=== PATIENT | female | born 1955 | race Caucasian/White ===

== ENCOUNTER → 2016-08-11 | Outpatient (CLI) | payer BC ==
[~2016-08-11] MED LIST: ATOR40TA PO; CALC-755 PO; CALC-803 PO; CETI-176 PO; DCS100C PO; ENAL20TA PO; ESCI5TAB PO; MULT1CAP27 PO; OMEP20CA6 PO; RT-COMBINH INH; SIMV40TA4 PO
--- NOTE | 2016-08-11 15:34 | Diagnostic Imaging Report ---
PROCEDURE: MRI lumbar spine. TECHNIQUE: Multiplanar, multisequence MRI of the lumbar spine was performed without contrast. INDICATION: Low back pain and right leg pain. COMPARISON: 12/02/2007 FINDINGS: There are new postoperative changes of posterior instrumented effusion at L5/S1. There is metallic susceptibility artifact which limits evaluation, however, no focal marrow edema is suspected. There is discogenic endplate marrow change seen at L5/S1. The conus medullaris is at L1 and appears unremarkable. At L5/S1 again there are postoperative changes. There is an interbody spacer device in the intervertebral disc space. There is prominent posterior endplate spurring on the right extending into the right neural foramen resulting in moderate to severe encroachment here. There is some articular facet degenerative change here as well. Findings result in mild right lateral recess and again moderate to severe right foraminal stenosis. There is no significant central narrowing. At L4/L5, there is severe facet arthropathy with minimal grade I degenerative anterior listhesis as well as degenerative disc disease and broad-based posterior disc protrusion resulting in mild central and lateral recess narrowing as well as mild foraminal narrowing bilaterally slightly more prominent on the right. At L3/L4, there is mild degenerative disc disease with annular bulge and mild facet arthropathy resulting in minimal central narrowing and minimal foraminal encroachment on the left. At L2/L3, there is no significant abnormality. The L1/L2 level also appears grossly unremarkable. IMPRESSION: 1. New postoperative changes at L5/S1 as described. There is prominent posterior endplate spurring on the right at this level resulting in moderate to severe right foraminal stenosis and some right lateral recess narrowing as well. Correlate clinically with the right L5 or S1 radiculopathy. 2. Degenerative changes with grade I degenerative anterior listhesis at L4/L5 resulting in mild narrowing of the central canal and mild foraminal narrowing bilaterally. 3. Additional degenerative changes as described above. Dictated by: Dictated on workstation # [id number]
== END ==
LOC: RAD 13:51
PROVIDERS: ATTEND Family Medicine
DX: M48.07 Spinal stenosis, lumbosacral region (principal)
CPT/HCPCS: 72148

== ENCOUNTER → 2018-03-12 | Outpatient (CLI) | payer BC ==
--- NOTE | 2018-03-12 16:22 | Diagnostic Imaging Report ---
INDICATION: Pain in hip and back for several months. TECHNIQUE: AP along with lateral imaging lumbar spine 3:10 PM. CORRELATION STUDY: None. FINDINGS: Postoperative changes at the L5-S1 level with apparent lumbarization of S1. This includes transpedicular screws, interconnecting rods and intervertebral spacer to be present. Alignment appears to be relatively anatomic. Hardware intact. Trace retrolisthesis of L3 on L4, L4 on L5. Alignment otherwise anatomic. Lumbar vertebral body heights maintained. IMPRESSION: Posterior fusion L5-S1 level. Hardware appearing to be intact with alignment anatomic at the fused segments. Dictated by: Dictated on workstation # [id number]
== END ==
LOC: RAD 14:35
PROVIDERS: ATTEND Neurological Surgery
DX: Z48.89 Encounter for other specified surgical aftercare (principal); M54.5 Low back pain; M25.559 Pain in unspecified hip; Z98.1 Arthrodesis status
CPT/HCPCS: 72100

== ENCOUNTER → 2019-03-05 | Outpatient (CLI) | payer BC ==
--- NOTE | 2019-03-05 19:15 | Diagnostic Imaging Report ---
INDICATION: Abnormal mammogram. EXAMINATION: Right breast ultrasound, limited. FINDINGS: The screening mammogram performed on 02/23/2019 noted a small nodular density in the lateral aspect of the right breast. The diagnostic mammogram performed prior to the study suggests that this nodule is most likely a benign process. On this exam, there is a small 0.7 x 0.4 x 0.5 cm hypoechoic lesion with hyperechoic center in this region. This has the appearance of a small benign lymph node and this may well correspond to the density seen on mammogram. There were no other solid or cystic lesions identified. It may prove worthwhile to have a short term (six month) follow-up mammogram and ultrasound exam of the right breast for continued evaluation. IMPRESSION: The nodular density in the far lateral aspect of the right breast, seen on the diagnostic mammogram, may well represent a lymph node. There is no solid mass to suggest malignancy. Recommendations as above. ACR BI-RADS Category 3: Probably benign findings. Result letter will be mailed to the patient. Note: At least 10% of breast cancer is not imaged by mammography. Dictated by: Dictated on workstation # [id number]
--- NOTE | 2019-03-05 19:40 | Diagnostic Imaging Report ---
EXAMINATION: Unilateral diagnostic right mammogram. INDICATION: Abnormal screening mammogram. The current study was also evaluated with a Computer Aided Detection (CAD) system. 3-D tomosynthesis was also performed and reviewed. FINDINGS: The recent screening mammogram performed on 02/20/2019 noted a small nodular density in the lateral aspect of the right breast, approximately 9 cm from the nipple. The compression views of this finding show that this density has a fairly smooth margin. I do suspect that this is a benign process. Even so, ultrasound would be recommended for further evaluation. IMPRESSION: Ultrasound would be recommended for further evaluation of the benign-appearing nodular density in the lateral aspect of the right breast. ACR BI-RADS Category 0: Incomplete. (Needs additional imaging evaluation). Result letter will be mailed to the patient. Note: At least 10% of breast cancer is not imaged by mammography. Dictated by: Dictated on workstation # [id number]
== END ==
LOC: RAD 08:11
PROVIDERS: ATTEND Family Medicine
DX: R92.2 Inconclusive mammogram (principal)

== ENCOUNTER → 2019-08-14 | Outpatient (CLI) | payer BC ==
--- NOTE | 2019-08-14 12:58 | Diagnostic Imaging Report ---
INDICATION: Six-month followup right breast nodule. COMPARISON: 02/20/2019 and 01/27/2018. TECHNIQUE: Unilateral right 2D and 3D diagnostic mammography was performed with CAD. FINDINGS: Scattered fibroglandular densities in the right breast are noted. The small nodular density in the upper outer right breast is stable to perhaps slightly smaller when compared with the prior study. No additional mass is seen. No suspicious calcifications are identified. The right axilla is unremarkable. IMPRESSION: Stable to slightly decreased size of the benign-appearing nodule in the upper outer right breast when compared with the prior exam. Even so, sonographic interrogation of this nodule is recommended and will be performed today. ACR BI-RADS Category 0: Incomplete. (Needs additional imaging evaluation). Result letter will be mailed to the patient. Note: At least 10% of breast cancer is not imaged by mammography. Dictated by: Dictated on workstation # [id number]
--- NOTE | 2019-08-14 13:44 | Diagnostic Imaging Report ---
INDICATION: Six-month followup right breast nodule. COMPARISON: Correlation is made with the diagnostic mammogram from earlier this same day and right breast ultrasound from 03/05/2019. TECHNIQUE: Interrogation of the 9 o'clock location of the right breast 8 cm from the nipple was performed. FINDINGS: The previously noted intra-parenchymal lymph node measures 6 mm x 4 mm x 5 mm, unchanged. No new mass is detected. IMPRESSION: Stable intraparenchymal lymph node at the 9 o'clock location of the right breast. The patient may return to routine annual screening mammography. ACR BI-RADS Category 2: Benign findings. Result letter will be mailed to the patient. Note: At least 10% of breast cancer is not imaged by mammography. Dictated by: Dictated on workstation # [id number]
== END ==
LOC: RAD 12:33
PROVIDERS: ATTEND Internal Medicine
DX: N63.10 Unspecified lump in the right breast, unspecified quadrant (principal); R92.2 Inconclusive mammogram

== ENCOUNTER → 2020-04-07 | Outpatient (CLI) | payer BC ==
--- NOTE | 2020-04-07 15:52 | Diagnostic Imaging Report ---
INDICATION: Routine screening. COMPARISON: 08/14/2019, 02/20/2019, and 01/27/2018. TECHNIQUE: 2D and 3D bilateral screening mammography was performed with CAD. FINDINGS: Scattered fibroglandular densities are identified bilaterally. A small benign nodule in the outer right breast appears stable. No new mass or malignant appearing microcalcifications are identified. The axillae are unremarkable. IMPRESSION: No mammographic features suspicious for malignancy are identified. ACR BI-RADS Category 2: Benign findings. Result letter will be mailed to the patient. Note: At least 10% of breast cancer is not imaged by mammography. Dictated by: Dictated on workstation # [id number]
== END ==
LOC: RAD 10:07
PROVIDERS: ATTEND Internal Medicine
DX: Z12.31 Encounter for screening mammogram for malignant neoplasm of breast (principal)
CPT/HCPCS: 77063; 77067

== ENCOUNTER → 2021-04-13 | Outpatient (CLI) | payer BC ==
--- NOTE | 2021-04-14 09:56 | Diagnostic Imaging Report ---
INDICATION: Routine screening. Comparison is made with prior mammogram from 04/07/2020 and 02/20/2019. 2-D and 3-D bilateral screening mammography was performed with CAD. Both breasts are heterogeneously dense, limiting the sensitivity of mammography. No mass or malignant-appearing microcalcifications are seen. Axillae are unremarkable. IMPRESSION: No mammographic features suspicious for malignancy are identified. BI-RADS Category 1 ACR BI-RADS Category 1: Negative. Result letter will be mailed to the patient. Note: At least 10% of breast cancer is not imaged by mammography. Dictated by: Dictated on workstation # [id number]
== END ==
LOC: RAD 15:00
PROVIDERS: ATTEND Internal Medicine
DX: Z12.31 Encounter for screening mammogram for malignant neoplasm of breast (principal)
CPT/HCPCS: 77063; 77067

== ENCOUNTER → 2021-05-30 | Outpatient (CLI) | payer BC ==
--- NOTE | 2021-05-30 13:45 | Diagnostic Imaging Report ---
Indication: Low back pain and fall 2 weeks ago. TIME OF EXAM: 11:33 AM 3 views lumbar spine were obtained. Curvature alignment is normal. There are postop changes of posterior instrument fusion with vertical stabilization rods and pedicle screws transfixing L4-L5 level. Hardware is intact. Vertebral body heights are maintained. No acute bony abnormality is detected. IMPRESSION: Postoperative changes of posterior instrumented fusion L4-L5. No acute abnormality is detected. Dictated by: Dictated on workstation # [id number]
== END ==
LOC: RAD 10:34
PROVIDERS: ATTEND Internal Medicine
DX: M54.9 Dorsalgia, unspecified (principal); W19.XXXA Unspecified fall, initial encounter; Z98.1 Arthrodesis status
CPT/HCPCS: 72100

== ENCOUNTER → 2021-07-11 | Outpatient (CLI) | payer BC ==
--- NOTE | 2021-07-11 18:09 | Diagnostic Imaging Report ---
PROCEDURE: MRI lumbar spine without contrast. TECHNIQUE: Multiplanar, multisequence MRI of the lumbar spine was performed without contrast. INDICATION: Back pain. History of surgery. COMPARISON: 08/11/2016. FINDINGS: 5 lumbar type vertebral bodies are visualized with the last well-formed disc space designated L5-S1. No acute fracture or dislocation is seen in the lumbar spine. Posterior fusion changes are visualized at the L4-L5 level. Interbody fusion is seen at L4-L5 and L5-S1. Laminectomy has been performed at L4 and L5. The conus terminates at the L1 level. No masses are seen associated with the conus or nerve roots of the cauda equina. No epidural collections are identified. Multilevel degenerative changes are seen in the lumbar spine with disc bulges, facet hypertrophy, and buckling of the ligamentum flavum. T12-L1: No significant spinal canal or foraminal stenosis. L1-L2: No significant spinal canal or foraminal stenosis. L2-L3: No significant spinal canal or foraminal stenosis. L3-L4: Broad-based disc bulge, facet hypertrophy, and buckling of the ligamentum flavum results in severe spinal canal stenosis and moderate to severe bilateral foraminal stenoses. L4-L5: Facet hypertrophy results in no significant spinal canal narrowing and mild to moderate bilateral foraminal narrowing. L5-S1: Marginal osteophytes and facet hypertrophy result in no significant spinal canal narrowing and severe right and moderate left foraminal stenoses. Paravertebral soft tissues are unremarkable. IMPRESSION: 1. No acute fracture or dislocation in the lumbar spine. 2. Multilevel degenerative changes in the lumbar spine, greatest at L3-L4. Bilateral high-grade foraminal stenoses are seen at the L4-L5 and L5-S1 levels. 3. Posterior fusion and laminectomy at L4-L5 with interbody fusion at the L4-L5 and L5-S1 levels. Dictated by: Dictated on workstation # [id number]
== END ==
LOC: RAD 14:45
PROVIDERS: ATTEND Internal Medicine
DX: M47.816 Spondylosis without myelopathy or radiculopathy, lumbar region (principal); M48.061 Spinal stenosis, lumbar region without neurogenic claudication; M48.07 Spinal stenosis, lumbosacral region; Z98.1 Arthrodesis status; Z98.890 Other specified postprocedural states
CPT/HCPCS: 72148

== ENCOUNTER 2021-10-11 16:49 | Observation (INO) | payer MEDICARE, BC ==
[~2021-10-11] VITALS: Ht 165.7 cm; Wt 87.0 kg
[2021-10-11 18:07] VITALS: BP 137/74
[2021-10-11] MEDS ORDERED: diphenhydrAMINE 25 MG TAB (BENADRYL) PO PRN (18:30)
[2021-10-11] MEDS ORDERED: ONDANSETRON 4 MG/2 ML (SDV) Z0FRAN IV PRN (18:30)
[2021-10-11] MEDS ORDERED: ONDANSETRON 4 MG (ZOFRAN) ORAL DISSOLVE TAB PO PRN (18:30)
[2021-10-11] MEDS ORDERED: MELATONIN 3 MG TABLET PO PRN (18:30)
[2021-10-11] MEDS ORDERED: ANTACID SUSP 30 ML UDC (MYLANTA) PO PRN (18:30)
[2021-10-11] MEDS ORDERED: CALCIUM CARBONATE 500 MG (TUMS) TAB.CHEW PO PRN (18:30)
[2021-10-11] MEDS ORDERED: diphenhydrAMINE 50 MG/ML INJ (BENADRYL) IVP PRN (18:30)
[2021-10-11] MEDS ORDERED: MILK OF MAGNESIA 400 MG/5 ML 30 ML UDC PO PRN (18:30)
[2021-10-11] MEDS ORDERED: BISACODYL 10 MG SUPP (DULCOLAX) PR NR (18:45)
[2021-10-11 18:47] LABS: BASOPHILS % (AUTO) 0 % (0-10); EOSINOPHILS # (AUTO) 0.1 10^3/uL (0.0-0.3); EOSINOPHILS % (AUTO) 1 % (0-10); HEMATOCRIT 34 % (35-52); HEMOGLOBIN 10.6 g/dL (11.5-16.0); LYMPHOCYTES # (AUTO) 1.3 10^3/uL (1.0-4.0); LYMPHOCYTES % (AUTO) 19 % (12-44); MEAN CORPUSCULAR HEMOGLOBIN 28 pg (25-34); MEAN CORPUSCULAR HGB CONC 32 g/dL (32-36); MEAN CORPUSCULAR VOLUME 89 fL (80-99); MEAN PLATELET VOLUME 10.6 fL (9.0-12.2); MONOCYTES # (AUTO) 0.9 10^3/uL (0.0-1.0); MONOCYTES % (AUTO) 12 % (0-12); NEUTROPHILS # (AUTO) 4.7 10^3/uL (1.8-7.8); NEUTROPHILS % (AUTO) 67 % (42-75); PLATELET COUNT 233 10^3/uL (130-400)
[2021-10-11 19:05] LABS: ALBUMIN 3.8 GM/DL (3.2-4.5); POTASSIUM 3.6 MMOL/L (3.6-5.0)
[2021-10-11 19:06] LABS: CALCIUM 9.8 MG/DL (8.5-10.1)
--- NOTE | 2021-10-11 19:07 | Diagnostic Imaging Report ---
REASON FOR EXAM: Back surgery 5 days ago. Constipation. Ileus. COMPARISON: None TECHNIQUE: 4 views of the abdomen FINDINGS: The bowel gas pattern is nondistended. No large collection of free intraperitoneal air is seen. A moderate amount of gas and fecal material are present in the colon. No unexpected radiopaque foreign bodies are visualized. Posterior fusion changes are visualized in the lower lumbar spine. Skin tia are seen overlying the right upper quadrant. IMPRESSION: 1. No evidence of bowel obstruction or large collection of free intraperitoneal air. 2. Moderate amount of stool in the colon suggestive of constipation. Dictated by: Dictated on workstation # [id number]
[2021-10-11 19:09] LABS: BILIRUBIN,TOTAL 0.4 MG/DL (0.1-1.0)
[2021-10-11 19:11] LABS: CREATININE SERUM 0.77 MG/DL (0.60-1.30)
[2021-10-11 19:45] VITALS: BP 132/68
[2021-10-11] MEDS: LACTULOSE SYRUP 10GM/15ML (ENULOSE) 30ML UDC PO SCH (20:22)
[2021-10-11] MEDS: polyethylene glycoL POWDER 17 GM (MIRALAX) PACK PO SCH (20:22)
[2021-10-11] MEDS: SENNOSIDES 8.6 MG (SENOKOT) TAB PO SCH (20:22)
[2021-10-11] MEDS: DOCUSATE SODIUM 100 MG (COLACE) CAP PO SCH (20:22)
[2021-10-11] MEDS: NS IV 1000 ML 1,000 ML IV SCH (20:42)
[2021-10-11] MEDS ORDERED: TRAM50TA3 PO (21:06)
[2021-10-11] MEDS ORDERED: TELM40TA6 PO (21:06)
[2021-10-11] MEDS ORDERED: AMLO-250 PO (21:06)
[2021-10-11] MEDS ORDERED: BACL10TA PO (21:06)
[2021-10-11] MEDS ORDERED: ATOR40TA70 PO (21:06)
[2021-10-11] MEDS ORDERED: ESCI-2 PO (21:06)
[2021-10-11] MEDS ORDERED: HYDR2TAB6 PO (21:06)
[2021-10-11] MEDS ORDERED: HYDROmorphone (DILAUDID) 2 MG TAB PO PRN (21:30)
[2021-10-11] MEDS: ACETAMINOPHEN 325 MG TABLET PO PRN (22:19)
[2021-10-12] MEDS: BACLOFEN 10 MG (LIORESAL) TAB PO SCH ×5 (00:34→23:46)
[2021-10-12 00:37] VITALS: BP 133/74
[2021-10-12] MEDS: ACETAMINOPHEN 325 MG TABLET PO PRN ×4 (04:35→23:45)
[2021-10-12 04:59] VITALS: BP 117/72
[2021-10-12 05:47] LABS: BASOPHILS % (AUTO) 0 % (0-10); EOSINOPHILS # (AUTO) 0.2 10^3/uL (0.0-0.3); EOSINOPHILS % (AUTO) 2 % (0-10); HEMATOCRIT 30 % (35-52); HEMOGLOBIN 9.6 g/dL (11.5-16.0); LYMPHOCYTES # (AUTO) 1.5 10^3/uL (1.0-4.0); LYMPHOCYTES % (AUTO) 22 % (12-44); MEAN CORPUSCULAR HEMOGLOBIN 28 pg (25-34); MEAN CORPUSCULAR HGB CONC 32 g/dL (32-36); MEAN CORPUSCULAR VOLUME 88 fL (80-99); MEAN PLATELET VOLUME 10.4 fL (9.0-12.2); MONOCYTES % (AUTO) 15 % (0-12); NEUTROPHILS # (AUTO) 4.1 10^3/uL (1.8-7.8); NEUTROPHILS % (AUTO) 60 % (42-75); PLATELET COUNT 215 10^3/uL (130-400); WHITE BLOOD COUNT 6.7 10^3/uL (4.3-11.0)
[2021-10-12] MEDS: NS IV 1000 ML 1,000 ML IV SCH ×2 (05:59→17:38)
[2021-10-12 06:17] LABS: ALBUMIN 3.3 GM/DL (3.2-4.5); POTASSIUM 3.6 MMOL/L (3.6-5.0)
[2021-10-12 06:18] LABS: CALCIUM 9.1 MG/DL (8.5-10.1)
[2021-10-12 06:20] LABS: TOTAL PROTEIN 5.9 GM/DL (6.4-8.2)
[2021-10-12 06:21] LABS: BILIRUBIN,TOTAL 0.3 MG/DL (0.1-1.0)
[2021-10-12 06:23] LABS: CREATININE SERUM 0.68 MG/DL (0.60-1.30)
--- NOTE | 2021-10-12 06:42 | Short Stay Summary ---
History of Present Illness History of Present Illness Reason for visit/HPI Chief complaint: Abdominal distention with obstipation History of present illness: This is a 66-year-old female clinic patient of mine who is postop lumbar spine surgery by Dr. Valentine on 10/04/2021 who has a past medical history of constipation who presented to my office with abdominal distention with pain and constipation. She had been taking multiple laxatives without resolution so the decision was made to admit for supportive care and evaluate for ileus versus obstruction. KUB from yesterday and today show impr ovement in constipation and stool burden but dilated bowel consistent with ileus. Dr. Newman will be consulted. Fluids continue. Ambulation will be initiated. PT ordered. Date of Admission October 11, 2021 at 17:38 Date of Discharge Time Seen by Provider: 10:00 Attending Physician Mitali Zavala DO Admitting Physician Mitali Zavala DO Consult Allergies and Home Medications Allergies Coded Allergies: codeine (Verified Allergy, Unknown, 04/07/20) enalapril (Verified Allergy, Unknown, 04/07/20) Patient Home Medication List Home Medication List Reviewed: Yes Amlodipine Besylate (Amlodipine Besylate) 5 Mg Tablet, 5 MG PO 1800, (Reported) Entered as Reported by: DEB HOLLIDAY on 10/11/212105 Last Action: Reviewed Atorvastatin Calcium (Atorvastatin Calcium) 40 Mg Tablet, 40 MG PO 1800, (Reported) Entered as Reported by: DEB HOLLIDAY on 10/11/212105 Last Action: Reviewed Baclofen (Baclofen) 10 Mg Tablet, 10 MG PO Q8H PRN for MUSCLE SPASMS, (Reported) Entered as Reported by: DEB HOLLIDAY on 10/11/212105 Last Action: Reviewed Cholecalciferol (Vitamin D3) (Vitamin D3) 125 Mcg (5000 Unit) Tablet, 125 MCG PO SUN, (Reported) Entered as Reported by: JASMIN ADDISON on 10/12/211610 Last Action: Reviewed Docusate Sodium (Stool Softener) 100 Mg Capsule, 100 MG PO BID PRN for CONSTIPATION-1ST LINE, (Reported) Entered as Reported by: JASMIN ADDISON on 10/12/211610 Last Action: Reviewed Escitalopram Oxalate (Escitalopram Oxalate) 10 Mg Tablet, 5 MG PO 1800, (Reported) Entered as Reported by: DEB HOLLIDAY on 10/11/212105 Last Action: Reviewed Ferrous Sulfate (Iron) 325 Mg (65 Mg Iron) Tablet, 325 MG PO 1800, (Reported) Entered as Reported by: JASMIN ADDISON on 10/12/211610 Last Action: Reviewed Glucosamine HCl (Glucosamine HCl) 1,500 Mg Tablet, 4,500 MG PO 1800, (Reported) Entered as Reported by: JASMIN ADDISON on 10/12/211610 Last Action: Reviewed Hydromorphone HCl (Hydromorphone HCl) 2 Mg Tablet, 2 MG PO Q4H PRN for PAIN- SEVERE (8-10), (Reported) Entered as Reported by: DEB HOLLIDAY on 10/11/212105 Last Action: Reviewed Magnesium Oxide (Magnesium) 250 Mg Tablet, 250 MG PO 1800, (Reported) Entered as Reported by: JASMIN ADDISON on 10/12/211610 Last Action: Reviewed Omeprazole Magnesium (Prilosec Otc) 20 Mg Tablet.dr, 20 MG PO DAILY PRN for HEARTBURN, (Reported) Entered as Reported by: JASMIN ADDISON on 10/12/211610 Last Action: Reviewed Telmisartan (Telmisartan) 40 Mg Tablet, 40 MG PO 1800, (Reported) Entered as Reported by: DEB HOLLIDAY on 10/11/212105 Last Action: Reviewed Tramadol HCl (Tramadol HCl) 50 Mg Tablet, 50-100 MG PO Q6H PRN for PAIN-MODERATE (5-7), (Reported) Entered as Reported by: DEB HOLLIDAY on 10/11/212105 Last Action: Reviewed Zolpidem Tartrate (Ambien) 10 Mg Tablet, 5 MG PO HS PRN for SLEEP, (Reported) Entered as Reported by: JASMIN ADDISON on 10/12/211610 Last Action: Reviewed Discontinued Medications Albuterol/Ipratropium (Combivent Common Canister) 1 Puff Puff, 2 PUFF INH PRN, (Reported) Discontinued Reason: No Longer Taking Entered as Reported by: EDNA RAMOS on 03/10/13 0955 Last Action: Discontinued Calcium Carb &Cit/Magnesium Ox (Calmag Thins Tablet) 1 Each Tablet, 1 EACH PO DAILY, (Reported) Discontinued Reason: No Longer Taking Entered as Reported by: MISHA ORTIZ on 03/09/13215 Last Action: Discontinued Docusate Sodium (Colace Capsule) 100 Mg Cap, 100 MG PO DAILY, (Reported) Discontinued Reason: Duplicate Order Entered as Reported by: MISHA WESTONTERI on 03/09/13215 Last Action: Discontinued Escitalopram Oxalate (Lexapro) 5 Mg Tablet, 1 EACH PO DAILY, (Reported) Discontinued Reason: No Longer Taking Entered as Reported by: ALYSSA GUILLAUME on 02/05/12 104 Last Action: Discontinued Multivitamins (Multivitamins) 1 Each Capsule, 1 EACH PO DAILY, (Reported) Discontinued Reason: No Longer Taking Entered as Reported by: ALYSSA GUILLAUME on 02/06/12 0800 Last Action: Discontinued Omeprazole (Prilosec) 20 Mg Capsule.dr, 20 MG PO PRN, (Reported) Discontinued Reason: No Longer Taking Entered as Reported by: ALYSSA GUILLAUME on 02/05/121043 Last Action: Discontinued Simvastatin (Simvastatin) 40 Mg Tablet, 40 MG PO DAILY, (Reported) Discontinued Reason: No Longer Taking Entered as Reported by: CRISS AYALA on 12/23/12 1252 Last Action: Discontinued Past Ckvzpnk-Auvnhd-Cfbbjo Hx Patient Social History Marrital Status: Employed/Student: retired Smoking Status: Never a Smoker Have you traveled recently?: No Alcohol Use?: No Pt feels they are or have been: No Immunizations Up To Date Tetanus Booster (TDap): More than 5yrs Date of Pneumonia Vaccine: Mar 05, 2011 Date of Influenza Vaccine: Feb 26, 2013 Seasonal Allergies Seasonal Allergies: Yes Surgeries Orthopedic Cardiovascular High Cholesterol, Hypertension Reproductive System Hx Reproductive Disorders: No Sexually Transmitted Disease: No HIV/AIDS: No Female Reproductive Disorders: Denies 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: 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 Gastrointestinal Gastroesophageal Reflux, Diverticulosis, Irritable Bowel Musculoskeletal Arthritis HEENT Loss of Vision: Denies Blood Transfusions Adverse Reaction to a Blood Tr: No Family Medical History Significant Family History: No Pertinent Family Hx Review of Systems Constitutional: see HPI, malaise, weakness EENTM: no symptoms reported Respiratory: no symptoms reported Cardiovascular: no symptoms reported Gastrointestinal: abdominal pain, constipation, loss of appetite, nausea Genitourinary: no symptoms reported Musculoskeletal: no symptoms reported Skin: no symptoms reported Psychiatric/Neurological: No Symptoms Reported All Other Systems Reviewed Negative Unless Noted: Yes Physical Exam Vital Signs Vital Signs - First Documented 5/11/22 18:07 Temp 35.8 Pulse 93 Resp 20 B/P (MAP) 137/74 (95) Pulse Ox 97 O2 Delivery Room Air Capillary Refill : Height, Weight, BMI Height: '" Weight: 183lbs. 4.0oz. 83.318517gq; 31.68 BMI Method: General Appearance: No Apparent Distress, WD/WN Eyes: Bilateral Eye Normal Inspection, Bilateral Eye PERRL, Bilateral Eye EOMI HEENT: PERRL/EOMI, Normal ENT Inspection, Pharynx Normal Neck: Full Range of Motion, Normal Inspection, Non Tender, Supple, Carotid Bruit Respiratory: Chest Non Tender, Lungs Clear, Normal Breath Sounds, No Accessory Muscle Use, No Respiratory Distress Cardiovascular: Regular Rate, Rhythm, No Edema, No Gallop, No JVD, No Murmur, Normal Peripheral Pulses Gastrointestinal: No Organomegaly, No Pulsatile Mass, Abnormal Bowel Sounds, Distended, Tenderness Back: Normal Inspection, No CVA Tenderness, No Vertebral Tenderness Extremity: Normal Capillary Refill, Normal Inspection, Normal Range of Motion, Non Tender, No Calf Tenderness, No Pedal Edema Neurologic/Psychiatric: Alert, Oriented x3, No Motor/Sensory Deficits, Normal Mood/Affect Skin: Normal Color, Warm/Dry Lymphatic: No Adenopathy Clinical Quality Measures DVT/VTE Risk/Contraindication: Contraindications-Pharm: Other *list below* Other: spine surgery Short Stay Diagnosis Discharge Diagnosis-Short Stay Admission Diagnosis: Postoperative lumbar spine surgery now with abdominal pain with distention and constipation Final Discharge Diagnosis: Postop ileus Conclusion Labs Laboratory Tests 10/11/21 18:40: White Blood Count 7.0, Red Blood Count 3.78L, Hemoglobin 10.6L, Hematocrit 34L, Mean Corpuscular Volume 89, Mean Corpuscular Hemoglobin 28, Mean Corpuscular Hemoglobin Concent 32, Red Cell Distribution Width 13.1, Platelet Count 233, Mean Platelet Volume 10.6, Immature Granulocyte % (Auto) 0, Neutrophils (%) (Auto) 67, Lymphocytes (%) (Auto) 19, Monocytes (%) (Auto) 12, Eosinophils (%) (Auto) 1, Basophils (%) (Auto) 0, Neutrophils # (Auto) 4.7, Lymphocytes # (Auto) 1.3, Monocytes # (Auto) 0.9, Eosinophils # (Auto) 0.1, Basophils # (Auto) 0.0, Immature Granulocyte # (Auto) 0.0, Sodium Level 142, Potassium Level 3.6, Chloride Level 100, Carbon Dioxide Level 31, Anion Gap 11, Blood Urea Nitrogen 8, Creatinine 0.77, Estimat Glomerular Filtration Rate 86, BUN/Creatinine Ratio 10, Glucose Level 150H, Calcium Level 9.8, Corrected Calcium 10.0, Total Bilirubin 0.4, Aspartate Amino Transf (AST/SGOT) 14, Alanine Aminotransferase (ALT/SGPT) 12, Alkaline Phosphatase 67, Total Protein 7.0, Albumin 3.8 10/12/21 05:35: White Blood Count 6.7, Red Blood Count 3.44L, Hemoglobin 9.6L, Hematocrit 30L, Mean Corpuscular Volume 88, Mean Corpuscular Hemoglobin 28, Mean Corpuscular Hemoglobin Concent 32, Red Cell Distribution Width 13.2, Platelet Count 215, Mean Platelet Volume 10.4, Immature Granulocyte % (Auto) 0, Neutrophils (%) (Auto) 60, Lymphocytes (%) (Auto) 22, Monocytes (%) (Auto) 15H, Eosinophils (%) (Auto) 2, Basophils (%) (Auto) 0, Neutrophils # (Auto) 4.1, Lymphocytes # (Auto) 1.5, Monocytes # (Auto) 1.0, Eosinophils # (Auto) 0.2, Basophils # (Auto) 0.0, Immature Granulocyte # (Auto) 0.0, Sodium Level 140, Potassium Level 3.6, Chloride Level 101, Carbon Dioxide Level 28, Anion Gap 11, Blood Urea Nitrogen 6L, Creatinine 0.68, Estimat Glomerular Filtration Rate 97, BUN/Creatinine Ratio 9, Glucose Level 104, Calcium Level 9.1, Corrected Calcium 9.7, Total Bilirubin 0.3, Aspartate Amino Transf (AST/SGOT) 12, Alanine Aminotransferase (ALT/SGPT) 9, Alkaline Phosphatase 61, Total Protein 5.9L, Albumin 3.3 Conclusion/Plan Consult Dr. Newman SCDs IV fluid Supportive care MITALI ZAVALA DO October 12, 2021 06:42
[2021-10-12] MEDS ORDERED: PATIENT MAY USE OWN MEDS, ALL MC SCH (07:45)
[2021-10-12 07:57] VITALS: BP 112/69
[2021-10-12] MEDS: DOCUSATE SODIUM 100 MG (COLACE) CAP PO SCH ×2 (08:40→21:34)
[2021-10-12] MEDS: LACTULOSE SYRUP 10GM/15ML (ENULOSE) 30ML UDC PO SCH ×3 (08:40→21:34)
[2021-10-12] MEDS: polyethylene glycoL POWDER 17 GM (MIRALAX) PACK PO SCH ×3 (08:40→21:34)
[2021-10-12] MEDS: SENNOSIDES 8.6 MG (SENOKOT) TAB PO SCH ×2 (08:40→21:34)
--- NOTE | 2021-10-12 09:54 | Physical Therapy Progress Note ---
Therapy Progress Note Patient declined PT stating she is independent with all mobility and does not require skilled PT. Patient did demonstrate ambulating in room independently. No skilled PT indicated and patient refusal. 1 visit TEOFILO ENCINAS PT October 12, 2021 09:54
[2021-10-12] MEDS ORDERED: HYDROmorphone (DILAUDID) 2 MG TAB PO PRN (10:00)
[2021-10-12] MEDS ORDERED: MAGNESIUM CITRATE 300 ML BTL PO NR (10:45)
--- NOTE | 2021-10-12 10:50 | Diagnostic Imaging Report ---
INDICATION: Recent back surgery. Ileus. COMPARISON: 10/11/2021 EXAM: Multiple frontal radiographic views of the abdomen were obtained. FINDINGS: There is a mild amount of gas scattered throughout the colon. Small bowel loops are nondistended. There is no large collection of free intraperitoneal air. Postsurgical changes of the lumbar spine are again noted. No unexpected radiopaque foreign bodies are seen. IMPRESSION: 1. Mild air scattered throughout the colon. Otherwise, no evidence of obstruction. Dictated by: Dictated on workstation # [id number]
[2021-10-12 11:51] VITALS: BP 133/73
--- NOTE | 2021-10-12 14:59 | Consultation - Surgery ---
History of Present Illness History of Present Illness Patient Consulted On(anjali/time) 10/12/21 14:54 Date Seen by Provider: October 12, 2021 Time Seen by Provider: 14:54 History of Present Illness Consult requested by Dr. Colmenares for ileus. Patient is 66-year-old female who just underwent lumbar spine surgery. Patient states that she had a little bit of difficulty with her bowels so she stayed an extra day in the hospital. She did not began having flatus. She is tolerating diet. She had an enema which then was productive of a little bit of stool as well. So she was discharged home. Patient reports having last couple days a little more abdominal pain and feels like it is diffuse all over. Definitely seems to make it better or worse. She is passing a little bit of flatus. Had a very small bowel movement with enema. May be slightly better today. She has been taking a bowel regimen she states which seems to maybe be helping. Patient has had been active but not very much and feels like she needs to be more active. She reports having slight nausea. Her pain is controlled with tramadol and Tylenol. Patient had abdominal x-rays which demonstrated signs of constipation. She currently denies any vomiting fever sweats chills shortness of breath or chest pain. Allergies and Home Medications Allergies Coded Allergies: codeine (Verified Allergy, Unknown, 04/07/20) enalapril (Verified Allergy, Unknown, 04/07/20) Patient Home Medication List Home Medication List Reviewed: Yes Amlodipine Besylate (Amlodipine Besylate) 5 Mg Tablet, (Reported) Entered as Reported by: DEB HOLLIDAY on 10/11/212105 Last Action: Held Atorvastatin Calcium (Atorvastatin Calcium) 40 Mg Tablet, (Reported) Entered as Reported by: DEB HOLLIDAY on 10/11/212105 Last Action: Held Baclofen (Baclofen) 10 Mg Tablet, (Reported) Entered as Reported by: DEB HOLLIDAY on 10/11/212105 Last Action: Continued Calcium Carb &Cit/Magnesium Ox (Calmag Thins Tablet) 1 Each Tablet, 1 EACH PO DAILY, (Reported) Entered as Reported by: MISHA ORTIZ on 03/09/136 Last Action: Held Docusate Sodium (Colace Capsule) 100 Mg Cap, 100 MG PO DAILY, (Reported) Entered as Reported by: MISHA ORTIZ on 03/09/13 0216 Last Action: Held Escitalopram Oxalate (Lexapro) 5 Mg Tablet, 1 EACH PO DAILY, (Reported) Entered as Reported by: ALYSSA GUILLAUME on 02/05/121043 Last Action: Held Escitalopram Oxalate (Escitalopram Oxalate) 10 Mg Tablet, (Reported) Entered as Reported by: DEB HOLLIDAY on 10/11/212105 Last Action: Held Hydromorphone HCl (Hydromorphone HCl) 2 Mg Tablet, (Reported) Entered as Reported by: DEB HOLLIDAY on 10/11/212105 Last Action: Continued Multivitamins (Multivitamins) 1 Each Capsule, 1 EACH PO DAILY, (Reported) Entered as Reported by: ALYSSA GUILLAUME on 02/06/12 0800 Last Action: Held Telmisartan (Telmisartan) 40 Mg Tablet, (Reported) Entered as Reported by: DEB HOLLIDAY on 10/11/212105 Last Action: Held Tramadol HCl (Tramadol HCl) 50 Mg Tablet, (Reported) Entered as Reported by: DEB HOLLIDAY on 10/11/212105 Last Action: Continued Discontinued Medications Albuterol/Ipratropium (Combivent Common Canister) 1 Puff Puff, 2 PUFF INH PRN, (Reported) Discontinued Reason: No Longer Taking Entered as Reported by: EDNA RAMOS on 03/10/13 0955 Last Action: Discontinued Omeprazole (Prilosec) 20 Mg Capsule.dr, 20 MG PO PRN, (Reported) Discontinued Reason: No Longer Taking Entered as Reported by: ALYSSA GUILLAUME on 02/05/12 104 Last Action: Discontinued Simvastatin (Simvastatin) 40 Mg Tablet, 40 MG PO DAILY, (Reported) Discontinued Reason: No Longer Taking Entered as Reported by: CRISS AYALA on 12/23/12 1252 Last Action: Discontinued Past Mobruko-Ykljbr-Vngquh Hx Patient Social History Smoking Status: Never a Smoker Alcohol Use?: No Have you traveled recently?: No Immunizations Up To Date Tetanus Booster (TDap): More than 5yrs Date of Pneumonia Vaccine: Mar 05, 2011 Date of Influenza Vaccine: Feb 26, 2013 Seasonal Allergies Seasonal Allergies: Yes Surgeries History of Surgeries: Yes (Recent back surgery) Reproductive System Hx Reproductive Disorders: No Sexually Transmitted Disease: No HIV/AIDS: No Female Reproductive Disorders: Denies 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 Gastrointestinal Gastrointestinal Disorders: Gastroesophageal Reflux, Diverticulosis, Irritable Bowel Musculoskeletal Musculoskeletal Disorders: Arthritis HEENT Loss of Vision: Denies Blood Transfusions Adverse Reaction to a Blood Tr: No Family Medical History Significant Family History: No Pertinent Family Hx Review of Systems-General Constitutional: No chills, No diaphoresis EENTM: No blurred vision, No double vision Respiratory: No cough, No dyspnea on exertion Cardiovascular: No chest pain, No palpitations Gastrointestinal: nausea; No vomiting Genitourinary: No decreased output, No discharge Musculoskeletal: back pain; No joint pain Skin: No change in color, No change in hair/nails Psychiatric/Neurological: Denies Anxiety, Denies Depressed, Denies Emotional Problems All Other Systems Reviewed Negative Unless Noted: Yes (Negative excepted noted.) Physical Exam-General Problems Physical Exam Vital Signs Vital Signs - First Documented 10/11/21 18:07 Temp 35.8 Pulse 93 Resp 20 B/P (MAP) 137/74 (95) Pulse Ox 97 O2 Delivery Room Air Capillary Refill : General Appearance: WD/WN, no apparent distress HEENT: PERRL/EOMI, normal ENT inspection Neck: non-tender, supple, normal inspection Respiratory: chest non-tender, no respiratory distress, no accessory muscle use Gastrointestinal: soft, tenderness (Minimal diffuse) Rectal: deferred Back: normal inspection (Except for midline incision lumbar region no signs of infection) Extremities: non-tender, normal inspection Neurologic/Psychiatric: alert, normal mood/affect, oriented x 3 Skin: normal color, warm/dry Lymphatic: no adenopathy Data Review Labs Laboratory Tests 10/11/21 18:40: White Blood Count 7.0, Red Blood Count 3.78L, Hemoglobin 10.6L, Hematocrit 34L, Mean Corpuscular Volume 89, Mean Corpuscular Hemoglobin 28, Mean Corpuscular Hemoglobin Concent 32, Red Cell Distribution Width 13.1, Platelet Count 233, Mean Platelet Volume 10.6, Immature Granulocyte % (Auto) 0, Neutrophils (%) (Auto) 67, Lymphocytes (%) (Auto) 19, Monocytes (%) (Auto) 12, Eosinophils (%) (Auto) 1, Basophils (%) (Auto) 0, Neutrophils # (Auto) 4.7, Lymphocytes # (Auto) 1.3, Monocytes # (Auto) 0.9, Eosinophils # (Auto) 0.1, Basophils # (Auto) 0.0, I mmature Granulocyte # (Auto) 0.0, Sodium Level 142, Potassium Level 3.6, Chloride Level 100, Carbon Dioxide Level 31, Anion Gap 11, Blood Urea Nitrogen 8, Creatinine 0.77, Estimat Glomerular Filtration Rate 86, BUN/Creatinine Ratio 10, Glucose Level 150H, Calcium Level 9.8, Corrected Calcium 10.0, Total Bilirubin 0.4, Aspartate Amino Transf (AST/SGOT) 14, Alanine Aminotransferase (ALT/SGPT) 12, Alkaline Phosphatase 67, Total Protein 7.0, Albumin 3.8 10/12/21 05:35: White Blood Count 6.7, Red Blood Count 3.44L, Hemoglobin 9.6L, Hematocrit 30L, Mean Corpuscular Volume 88, Mean Corpuscular Hemoglobin 28, Mean Corpuscular Hemoglobin Concent 32, Red Cell Distribution Width 13.2, Platelet Count 215, Mean Platelet Volume 10.4, Immature Granulocyte % (Auto) 0, Neutrophils (%) (Auto) 60, Lymphocytes (%) (Auto) 22, Monocytes (%) (Auto) 15H, Eosinophils (%) (Auto) 2, Basophils (%) (Auto) 0, Neutrophils # (Auto) 4.1, Lymphocytes # (Auto) 1.5, Monocytes # (Auto) 1.0, Eosinophils # (Auto) 0.2, Basophils # (Auto) 0.0, Immature Granulocyte # (Auto) 0.0, Sodium Level 140, Potassium Level 3.6, Chloride Level 101, Carbon Dioxide Level 28, Anion Gap 11, Blood Urea Nitrogen 6L, Creatinine 0.68, Estimat Glomerular Filtration Rate 97, BUN/Creatinine Ratio 9, Glucose Level 104, Calcium Level 9.1, Corrected Calcium 9.7, Total Bilirubin 0.3, Aspartate Amino Transf (AST/SGOT) 12, Alanine Aminotransferase (ALT/SGPT) 9, Alkaline Phosphatase 61, Total Protein 5.9L, Albumin 3.3 Assessment/Plan Assessment/Plan Assessment/Plan Status post lumbar surgery Minimal generalized abdominal pain Constipation/ileus Patient encouraged to increase activity as she tolerates. She can continue with current bowel regimen which I think will be beneficial. She is passing flatus so I feel that this will continue to improve. We will continue to follow this patient is in the hospital. Clinical Quality Measures DVT/VTE Risk/Contraindication: Contraindications-Pharm: Other *list below* Other: spine surgery ROCIO TURNER DO October 12, 2021 14:59
[2021-10-12 15:42] VITALS: BP 120/56
[2021-10-12] MEDS ORDERED: CALC-250 PO (16:11)
[2021-10-12] MEDS ORDERED: GLUC15006 PO (16:11)
[2021-10-12] MEDS ORDERED: OMEP20TA33 PO (16:11)
[2021-10-12] MEDS ORDERED: FERR-84 PO (16:11)
[2021-10-12] MEDS ORDERED: MAGN250T13 PO (16:11)
[2021-10-12] MEDS ORDERED: ZOLP10TA PO (16:11)
[2021-10-12] MEDS ORDERED: DOCU-26 PO (16:11)
[2021-10-12 20:00] VITALS: BP 137/73
[2021-10-13 00:25] VITALS: BP 135/61
[2021-10-13 05:26] LABS: BASOPHILS # (AUTO) 0.1 10^3/uL (0.0-0.1); BASOPHILS % (AUTO) 1 % (0-10); EOSINOPHILS # (AUTO) 0.1 10^3/uL (0.0-0.3); EOSINOPHILS % (AUTO) 2 % (0-10); HEMATOCRIT 32 % (35-52); HEMOGLOBIN 10.1 g/dL (11.5-16.0); LYMPHOCYTES # (AUTO) 1.5 10^3/uL (1.0-4.0); LYMPHOCYTES % (AUTO) 23 % (12-44); MEAN CORPUSCULAR HEMOGLOBIN 28 pg (25-34); MEAN CORPUSCULAR HGB CONC 32 g/dL (32-36); MEAN CORPUSCULAR VOLUME 89 fL (80-99); MEAN PLATELET VOLUME 10.3 fL (9.0-12.2); MONOCYTES # (AUTO) 0.9 10^3/uL (0.0-1.0); MONOCYTES % (AUTO) 14 % (0-12); NEUTROPHILS # (AUTO) 3.9 10^3/uL (1.8-7.8); NEUTROPHILS % (AUTO) 60 % (42-75); PLATELET COUNT 253 10^3/uL (130-400); WHITE BLOOD COUNT 6.5 10^3/uL (4.3-11.0)
[2021-10-13] MEDS: BACLOFEN 10 MG (LIORESAL) TAB PO SCH (05:33)
[2021-10-13] MEDS: NS IV 1000 ML 1,000 ML IV SCH (05:35)
[2021-10-13 05:52] LABS: ALBUMIN 3.5 GM/DL (3.2-4.5); POTASSIUM 3.6 MMOL/L (3.6-5.0)
[2021-10-13 05:53] LABS: CALCIUM 9.5 MG/DL (8.5-10.1)
[2021-10-13 05:55] LABS: TOTAL PROTEIN 6.3 GM/DL (6.4-8.2)
[2021-10-13 05:56] LABS: BILIRUBIN,TOTAL 0.4 MG/DL (0.1-1.0)
[2021-10-13 05:58] LABS: CREATININE SERUM 0.7 MG/DL (0.60-1.30)
[2021-10-13 08:00] VITALS: BP 131/73
[2021-10-13] MEDS: LACTULOSE SYRUP 10GM/15ML (ENULOSE) 30ML UDC PO SCH (08:23)
[2021-10-13] MEDS: DOCUSATE SODIUM 100 MG (COLACE) CAP PO SCH (08:23)
[2021-10-13] MEDS: polyethylene glycoL POWDER 17 GM (MIRALAX) PACK PO SCH (08:23)
[2021-10-13] MEDS: SENNOSIDES 8.6 MG (SENOKOT) TAB PO SCH (08:23)
[2021-10-13] MEDS: ACETAMINOPHEN 325 MG TABLET PO PRN (08:40)
--- NOTE | 2021-10-13 09:04 | Discharge Summary ---
Diagnosis/Chief Complaint Date of Admission October 11, 2021 at 17:38 Date of Discharge Discharge Date: October 13, 2021 Discharge Diagnosis Postop ileus Constipation Dehydration Abdominal pain Status post lumbar spine surgery on 10/04/2021 Reason Hospital Visit Chief complaint: Abdominal distention with obstipation History of present illness: This is a 66-year-old female clinic patient of mine who is postop lumbar spine surgery by Dr. Valentine on 10/04/2021 who has a past medical history of constipation who presented to my office with abdominal distention with pain and constipation. She had been taking multiple laxatives without resolution so the decision was made to admit for supportive care and evaluate for ileus versus obstruction. KUB from yesterday and today show improv ement in constipation and stool burden but dilated bowel consistent with ileus. Dr. Newman will be consulted. Fluids continue. Ambulation will be initiated. PT ordered. Discharge Summary Discharge Physical Examination Allergies: Coded Allergies: codeine (Verified Allergy, Unknown, 04/07/20) enalapril (Verified Allergy, Unknown, 04/07/20) Vitals & I&Os Vital Signs Date Time Temp Pulse Resp B/P (MAP) Pulse Ox O2 Delivery O2 Flow Rate FiO2 10/13/21 11:24 36.4 80 18 131/73 93 Room Air General Appearance: Alert, Oriented X3, Cooperative Abdominal: Normal Bowel Sounds, Soft, No Tenderness Hospital Course Was the Problem List Reviewed?: Yes Pt had an uneventful hospital course after she was admitted from post-op ileus and constipation. Dr. Newman was consulted. She was given laxatives, IV fluids, clear liquid diet, and pt was evacuated of bowel contents. Pt was doing very well and felt like she was on the road to recovery. She will see me next week. Labs (last 24 hrs) Laboratory Tests 10/11/21 18:40: White Blood Count 7.0, Red Blood Count 3.78L, Hemoglobin 10.6L, Hematocrit 34L, Mean Corpuscular Volume 89, Mean Corpuscular Hemoglobin 28, Mean Corpuscular Hemoglobin Concent 32, Red Cell Distribution Width 13.1, Platelet Count 233, Mean Platelet Volume 10.6, Immature Granulocyte % (Auto) 0, Neutrophils (%) (Auto) 67, Lymphocytes (%) (Auto) 19, Monocytes (%) (Auto) 12, Eosinophils (%) (Auto) 1, Basophils (%) (Auto) 0, Neutrophils # (Auto) 4.7, Lymphocytes # (Auto) 1.3, Monocytes # (Auto) 0.9, Eosinophils # (Auto) 0.1, Basophils # (Auto) 0.0, Immature Granulocyte # (Auto) 0.0, Sodium Level 142, Potassium Level 3.6, Chloride Level 100, Carbon Dioxide Level 31, Anion Gap 11, Blood Urea Nitrogen 8, Creatinine 0.77, Estimat Glomerular Filtration Rate 86, BUN/Creatinine Ratio 10, Glucose Level 150H, Calcium Level 9.8, Corrected Calcium 10.0, Total Bilirubin 0.4, Aspartate Amino Transf (AST/SGOT) 14, Alanine Aminotransferase (ALT/SGPT) 12, Alkaline Phosphatase 67, Total Protein 7.0, Albumin 3.8 10/12/21 05:35: White Blood Count 6.7, Red Blood Count 3.44L, Hemoglobin 9.6L, Hematocrit 30L, Mean Corpuscular Volume 88, Mean Corpuscular Hemoglobin 28, Mean Corpuscular Hem oglobin Concent 32, Red Cell Distribution Width 13.2, Platelet Count 215, Mean Platelet Volume 10.4, Immature Granulocyte % (Auto) 0, Neutrophils (%) (Auto) 60, Lymphocytes (%) (Auto) 22, Monocytes (%) (Auto) 15H, Eosinophils (%) (Auto) 2, Basophils (%) (Auto) 0, Neutrophils # (Auto) 4.1, Lymphocytes # (Auto) 1.5, Monocytes # (Auto) 1.0, Eosinophils # (Auto) 0.2, Basophils # (Auto) 0.0, Immature Granulocyte # (Auto) 0.0, Sodium Level 140, Potassium Level 3.6, Chloride Level 101, Carbon Dioxide Level 28, Anion Gap 11, Blood Urea Nitrogen 6L, Creatinine 0.68, Estimat Glomerular Filtration Rate 97, BUN/Creatinine Ratio 9, Glucose Level 104, Calcium Level 9.1, Corrected Calcium 9.7, Total Bilirubin 0.3, Aspartate Amino Transf (AST/SGOT) 12, Alanine Aminotransferase (ALT/SGPT) 9, Alkaline Phosphatase 61, Total Protein 5.9L, Albumin 3.3 10/13/21 05:00: White Blood Count 6.5, Red Blood Count 3.59L, Hemoglobin 10.1L, Hematocrit 32L, Mean Corpuscular Volume 89, Mean Corpuscular Hemoglobin 28, Mean Corpuscular Hemoglobin Concent 32, Red Cell Distribution Width 13.2, Platelet Count 253, Mean Platelet Volume 10.3, Immature Granulocyte % (Auto) 0, Neutrophils (%) (Auto) 60, Lymphocytes (%) (Auto) 23, Monocytes (%) (Auto) 14H, Eosinophils (%) (Auto) 2, Basophils (%) (Auto) 1, Neutrophils # (Auto) 3.9, Lymphocytes # (Auto) 1.5, Monocytes # (Auto) 0.9, Eosinophils # (Auto) 0.1, Basophils # (Auto) 0.1, Immature Granulocyte # (Auto) 0.0, Sodium Level 142, Potassium Level 3.6, Chloride Level 104, Carbon Dioxide Level 28, Anion Gap 10, Blood Urea Nitrogen 4L, Creatinine 0.70, Estimat Glomerular Filtration Rate 96, BUN/Creatinine Ratio 6, Glucose Level 96, Calcium Level 9.5, Corrected Calcium 9.9, Total Bilirubin 0.4, Aspartate Amino Transf (AST/SGOT) 18, Alanine Aminotransferase (ALT/SGPT) 13, Alkaline Phosphatase 76, Total Protein 6.3L, Albumin 3.5 Pending Labs Laboratory Tests 10/11/21 18:40: White Blood Count 7.0, Red Blood Count 3.78, Hemoglobin 10.6, Hematocrit 34, Mean Corpuscular Volume 89, Mean Corpuscular Hemoglobin 28, Mean Corpuscular Hemoglobin Concent 32, Red Cell Distribution Width 13.1, Platelet Count 233, Mean Platelet Volume 10.6, Immature Granulocyte % (Auto) 0, Neutrophils (%) (Auto) 67, Lymphocytes (%) (Auto) 19, Monocytes (%) (Auto) 12, Eosinophils (%) (Auto) 1, Basophils (%) (Auto) 0, Neutrophils # (Auto) 4.7, Lymphocytes # (Auto) 1.3, Monocytes # (Auto) 0.9, Eosinophils # (Auto) 0.1, Basophils # (Auto) 0.0, Immature Granulocyte # (Auto) 0.0, Sodium Level 142, Potassium Level 3.6, Chloride Level 100, Carbon Dioxide Level 31, Anion Gap 11, Blood Urea Nitrogen 8, Creatinine 0.77, Estimat Glomerular Filtration Rate 86, BUN/Creatinine Ratio 10, Glucose Level 150, Calcium Level 9.8, Corrected Calcium 10.0, Total Bilirubin 0.4, Aspartate Amino Transf (AST/SGOT) 14, Alanine Aminotransferase (ALT/SGPT) 12, Alkaline Phosphatase 67, Total Protein 7.0, Albumin 3.8 10/12/21 05:35: White Blood Count 6.7, Red Blood Count 3.44, Hemoglobin 9.6, Hematocrit 30, Mean Corpuscular Volume 88, Mean Corpuscular Hemoglobin 28, Mean Corpuscular Hemoglobin Concent 32, Red Cell Distribution Width 13.2, Platelet Count 215, Mean Platelet Volume 10.4, Immature Granulocyte % (Auto) 0, Neutrophils (%) (Auto) 60, Lymphocytes (%) (Auto) 22, Monocytes (%) (Auto) 15, Eosinophils (%) ( Auto) 2, Basophils (%) (Auto) 0, Neutrophils # (Auto) 4.1, Lymphocytes # (Auto) 1.5, Monocytes # (Auto) 1.0, Eosinophils # (Auto) 0.2, Basophils # (Auto) 0.0, Immature Granulocyte # (Auto) 0.0, Sodium Level 140, Potassium Level 3.6, Chloride Level 101, Carbon Dioxide Level 28, Anion Gap 11, Blood Urea Nitrogen 6, Creatinine 0.68, Estimat Glomerular Filtration Rate 97, BUN/Creatinine Ratio 9, Glucose Level 104, Calcium Level 9.1, Corrected Calcium 9.7, Total Bilirubin 0.3, Aspartate Amino Transf (AST/SGOT) 12, Alanine Aminotransferase (ALT/SGPT) 9, Alkaline Phosphatase 61, Total Protein 5.9, Albumin 3.3 10/13/21 05:00: White Blood Count 6.5, Red Blood Count 3.59, Hemoglobin 10.1, Hematocrit 32, Mean Corpuscular Volume 89, Mean Corpuscular Hemoglobin 28, Mean Corpuscular Hemoglobin Concent 32, Red Cell Distribution Width 13.2, Platelet Count 253, Mean Platelet Volume 10.3, Immature Granulocyte % (Auto) 0, Neutrophils (%) (Auto) 60, Lymphocytes (%) (Auto) 23, Monocytes (%) (Auto) 14, Eosinophils (%) (Auto) 2, Basophils (%) (Auto) 1, Neutrophils # (Auto) 3.9, Lymphocytes # (Auto) 1.5, Monocytes # (Auto) 0.9, Eosinophils # (Auto) 0.1, Basophils # (Auto) 0.1, Immature Granulocyte # (Auto) 0.0, Sodium Level 142, Potassium Level 3.6, Chloride Level 104, Carbon Dioxide Level 28, Anion Gap 10, Blood Urea Nitrogen 4, Creatinine 0.70, Estimat Glomerular Filtration Rate 96, BUN/Creatinine Ratio 6, Glucose Level 96, Calcium Level 9.5, Corrected Calcium 9.9, Total Bilirubin 0.4, Aspartate Amino Transf (AST/SGOT) 18, Alanine Aminotransferase (ALT/SGPT) 13, Alkaline Phosphatase 76, Total Protein 6.3, Albumin 3.5 Discharge Home Medications: Active Scripts Active Reported Ambien (Zolpidem Tartrate) 10 Mg Tablet 5 Mg PO HS PRN TAKES OF A 10MG TAB Prilosec Otc (Omeprazole Magnesium) 20 Mg Tablet.dr 20 Mg PO DAILY PRN Vitamin D3 (Cholecalciferol (Vitamin D3)) 125 Mcg (5000 Unit) Tablet 125 Mcg PO SUN Iron (Ferrous Sulfate) 325 Mg (65 Mg Iron) Tablet 325 Mg PO 1800 Stool Softener (Docusate Sodium) 100 Mg Capsule 100 Mg PO BID PRN Magnesium (Magnesium Oxide) 250 Mg Tablet 250 Mg PO 1800 Glucosamine HCl 1,500 Mg Tablet 4,500 Mg PO 1800 TAKES 3 (1500MG) TABS Atorvastatin Calcium 40 Mg Tablet 40 Mg PO 1800 LAST FILLED 04-18-2021 #90/90 DAY SUPPLY Telmisartan 40 Mg Tablet 40 Mg PO 1800 Escitalopram Oxalate 10 Mg Tablet 5 Mg PO 1800 TAKES OF A 10MG TAB Amlodipine Besylate 5 Mg Tablet 5 Mg PO 1800 Tramadol HCl 50 Mg Tablet 50-100 Mg PO Q6H PRN Baclofen 10 Mg Tablet 10 Mg PO Q8H PRN Hydromorphone HCl 2 Mg Tablet 2 Mg PO Q4H PRN Instructions to patient/family Please see electronic discharge instructions given to patient. Clinical Quality Measures DVT/VTE Risk/Contraindication: Contraindications-Pharm: Other *list below* Other: spine surgery PEYTON ZAVALA DO October 13, 2021 09:04
[2021-10-13 11:24] VITALS: BP 131/73
--- NOTE | 2021-10-13 17:14 | Progress Note - Surgery ---
Subjective Date Seen by a Provider: October 13, 2021 Time Seen by a Provider: 09:00 Subjective/Events-last exam Patient states that she is feeling well. She is passing gas and a little bowel movement. Patient is tolerating liquids. Patient abdominal pain better since passing more gas. She started to ambulate a little bit more. She has no other complaints at this time she denies any nausea vomiting fever sweats chills shortness of breath or chest pain. Objective Exam Vital Signs Date Time Temp Pulse Resp B/P (MAP) Pulse Ox O2 Delivery O2 Flow Rate FiO2 10/13/21 11:24 36.4 80 18 131/73 93 Room Air 10/13/21 08:30 Room Air 10/13/21 08:00 36.4 70 18 131/73 (92) 93 Room Air 10/13/21 00:25 37.2 69 14 135/61 (85) 97 Room Air 10/12/21 20:00 Room Air 10/12/21 20:00 35.8 69 18 137/73 (94) 97 Room Air I & O 10/13/21 06:59 Intake Total 1360 ml Output Total 4350 ml Balance -2990 ml Capillary Refill : General Appearance: No Apparent Distress, WD/WN HEENT: PERRL/EOMI, Normal ENT Inspection, Pharynx Normal Neck: Full Range of Motion, Normal Inspection, Non Tender Respiratory: Chest Non Tender, No Accessory Muscle Use, No Respiratory Distress Cardiovascular: Regular Rate, Rhythm, No JVD, Normal Peripheral Pulses Gastrointestinal: non tender, soft Extremity: Normal Capillary Refill, Normal Inspection, Normal Range of Motion, Non Tender, No Calf Tenderness, No Pedal Edema Neurologic/Psychiatric: Alert, Oriented x3, No Motor/Sensory Deficits, Normal Mood/Affect Skin: Normal Color, Warm/Dry Lymphatic: No Adenopathy Results Lab Laboratory Tests 10/13/21 05:00: White Blood Count 6.5, Red Blood Count 3.59L, Hemoglobin 10.1L, Hematocrit 32L, Mean Corpuscular Volume 89, Mean Corpuscular Hemoglobin 28, Mean Corpuscular Hemoglobin Concent 32, Red Cell Distribution Width 13.2, Platelet Count 253, Mean Platelet Volume 10.3, Immature Granulocyte % (Auto) 0, Neutrophils (%) (Auto) 60, Lymphocytes (%) (Auto) 23, Monocytes (%) (Auto) 14H, Eosinophils (%) (Auto) 2, Basophils (%) (Auto) 1, Neutrophils # (Auto) 3.9, Lymphocytes # (Auto) 1.5, Monocytes # (Auto) 0.9, Eosinophils # (Auto) 0.1, Basophils # (Auto) 0.1, Immature Granulocyte # (Auto) 0.0, Sodium Level 142, Potassium Level 3.6, Chloride Level 104, Carbon Dioxide Level 28, Anion Gap 10, Blood Urea Nitrogen 4L, Creatinine 0.70, Estimat Glomerular Filtration Rate 96, BUN/Creatinine Ratio 6, Glucose Level 96, Calcium Level 9.5, Corrected Calcium 9.9, Total Bilirubin 0.4, Aspartate Amino Transf (AST/SGOT) 18, Alanine Aminotransferase (ALT/SGPT) 13, Alkaline Phosphatase 76, Total Protein 6.3L, Albumin 3.5 Assessment/Plan Assessment/Plan Assessment/Plan Status post lumbar surgery Minimal generalized abdominal pain-improved Constipation/ileusimproved Patient feeling better. She is passing flatus and small bowel movement. Encouraged to continue increasing activity as she tolerates and also utilizing recommendations by her neurosurgeon. Patient can slowly advance diet. Can follow-up on as-needed basis. Clinical Quality Measures DVT/VTE Risk/Contraindication: Contraindications-Pharm: Other *list below* Other: spine surgery ROCIO TURNER DO October 13, 2021 17:14
== END 2021-10-13 11:20 | disposition home or self-care (01) ==
LOC: 4TH 17:38
PROVIDERS: ADMIT Internal Medicine; ATTEND Internal Medicine
DX: K91.89 Other postprocedural complications and disorders of digestive system (principal); K56.7 Ileus, unspecified; K59.00 Constipation, unspecified; Z88.5 Allergy status to narcotic agent; Z88.8 Allergy status to other drugs, medicaments and biological substances
CPT/HCPCS: 74018; 74022; 80053 ×3; 85025 ×3; G0378; G0379; 36415

== ENCOUNTER → 2022-04-16 | Outpatient (CLI) | payer MEDICARE, BC ==
[~2022-04-16] MED LIST changes: +AMLO-250 PO; +ATOR40TA70 PO; +BACL10TA PO; +CALC-250 PO; +DOCU-26 PO; +ESCI-2 PO; +FERR-84 PO; +GLUC15006 PO; +HYDR2TAB6 PO; +MAGN250T13 PO; +OMEP20TA33 PO; +TELM40TA6 PO; +TRAM50TA3 PO; +ZOLP10TA PO
--- NOTE | 2022-04-16 12:20 | Diagnostic Imaging Report ---
INDICATION: Routine screening. COMPARISON: 04/13/2021 and 04/07/2020. TECHNIQUE: 2D and 3D bilateral screening mammography was performed with CAD. FINDINGS: Scattered fibroglandular densities are identified bilaterally. A benign-appearing nodular density in the upper outer right breast appears stable. No new mass or malignant-appearing microcalcifications are seen. The axillae are unremarkable. IMPRESSION: No mammographic features suspicious for malignancy are identified. ACR BI-RADS Category 2: Benign findings. Result letter will be mailed to the patient. Note: At least 10% of breast cancer is not imaged by mammography. Dictated by: Dictated on workstation # [id number]
== END ==
LOC: RAD 10:58
PROVIDERS: ATTEND Internal Medicine
DX: Z12.31 Encounter for screening mammogram for malignant neoplasm of breast (principal)
CPT/HCPCS: 77063; 77067

== ENCOUNTER 2022-07-18 05:40 | Outpatient (CLI) | payer MEDICARE, BC ==
[~2022-07-18] VITALS: Ht 165.1 cm; Wt 86.6 kg
[2022-07-20] MEDS ORDERED: GBPN600T PO (12:58)
[2022-07-20] MEDS ORDERED: RIZA10TA94 PO (12:58)
[2022-07-20] MEDS ORDERED: NAPR-915 PO (12:58)
== END 2022-07-20 13:00 | disposition home or self-care (01) ==
LOC: PREOP 05:40
PROVIDERS: ATTEND Surgery
DX: Z01.818 Encounter for other preprocedural examination (principal)

== ENCOUNTER → 2022-07-31 | Day surgery (SDC) | payer MEDICARE, BC ==
[~2022-07-31] VITALS: Ht 165 cm; Wt 86.6 kg
[2022-07-31] VITALS (8 sets, daily range): BP systolic 79–161; BP diastolic 49–74
[~2022-07-31] MED LIST changes: +GBPN600T PO; +LACTATED RINGERS 1,000 ML IV ONE; +LACTATED RINGERS 1,000 ML IV STA; +NAPR-915 PO; +PROPOFOL INJECTION 50 ML IV ONE; +RIZA10TA94 PO
--- NOTE | 2022-07-31 13:07 | Progress Note-Pre Operative ---
Pre-Operative Progress Note Date H&P Reviewed: Jul 31, 2022 Time H&P Reviewed: 13:06 History & Physical: H&P Reviewed, Patient Examed, No changes noted Pre-Operative Diagnosis: screening colonoscopy ROCIO TURNER DO Jul 31, 2022 13:07
--- NOTE | 2022-07-31 14:25 | Anesthesia-General Post-Op ---
MAC Patient Condition Mental Status/LOC: Same as Preop Cardiovascular: Satisfactory Nausea/Vomiting: Absent Respiratory: Satisfactory Pain: Controlled Complications: Absent Post Op Complications Complications None Follow Up Care/Instructions Patient Instructions None needed. Anesthesiology Discharge Order Discharge Order Patient is doing well, no complaints, stable vital signs, no apparent adverse anesthesia problems. No complications reported per nursing. SARA GREY CRNA Jul 31, 2022 14:25
--- NOTE | 2022-07-31 14:37 | Discharge Inst-Simple/Standard ---
Discharge Inst-Standard Patient Instructions/Follow Up Plan of Care/Instructions/FU: 2 weeks Trent Activity as Tolerated: Yes Discharge Diet: Regular Diet (high fiber) ROCIO TURNER DO Jul 31, 2022 14:37
--- NOTE | 2022-07-31 14:38 | Progress Note-Post Operative ---
Post-Operative Progess Note Surgeon (s)/Manager Assessment (s) Surgeon ROCIO TURNER DO Manager Assessment: na Pre-Operative Diagnosis screening colonoscopy Post-Operative Diagnosis cecal mucosal change, diverticulosis Procedure & Operative Findings Date of Procedure 07/31/22 Procedure Performed/Findings colonoscopy c cold biopsy cecal mucosal change Anesthesia Type per senior director Estimated Blood Loss Estimated blood loss (mL): none Specimens/Packing Specimens Removed cecal mucosal change ROCIO TURNER DO Jul 31, 2022 14:38
--- NOTE | 2022-07-31 19:18 | OPERATIVE REPORT ---
DATE OF SERVICE: 07/31/2022 PREOPERATIVE DIAGNOSIS: Screening colonoscopy. POSTOPERATIVE DIAGNOSIS: Cecal mucosal change, diverticulosis. PROCEDURE: Colonoscopy with cold biopsy, cecal mucosal change. SURGEON: Rocio Newman DO ANESTHESIA: Per VICE PRESIDENT DIVERSITY. ESTIMATED BLOOD LOSS: None. COMPLICATIONS: None. SPECIMENS: Cecal mucosal change. INDICATIONS: The patient is a 67-year-old female, needing screening colonoscopy. She understands risks and benefits and wishes to proceed. Consent was signed in chart. DESCRIPTION OF PROCEDURE: The patient was taken to the endoscopy suite, placed in left lateral recumbent position. Timeout was performed. Digital rectal exam was performed. No palpable polyps, masses or ulcerations. Some hemorrhoidal disease. Scope was inserted in the rectum, advanced all the way to the cecum without difficulty. Prep was adequate. A slight mucosal change in the cecum, which cold biopsy was performed. Scope was then slowly retracted back. No polyps, masses or ulcerations within the ascending, transverse, descending and sigmoid colon. Once in the sigmoid, a significant amount diverticulosis present. Scope was then continuously retracted back to the rectum, where no other pathology was noted except for when retroflexed noting internal hemorrhoids. Scope was returned to its normal position, slowly withdrawn until completely removed, noting no other pathology. RECOMMENDATIONS: We will need to follow up in 2 weeks to discuss pathology results. Would recommend repeat colonoscopy in 10 years unless family history of colon cancer or personal history of polyps, which will then be 5 years. Any issues before that, be seen at that time. Would recommend high fiber diet. Further recommendations pending biopsy results. Job ID: [id number] DocumentID: [id number] Dictated Date: 07/31/2022 14:42:03 [employer] Date: 07/31/2022 19:15:00 Dictated By: ROCIO NEWMAN DO
== END | disposition home or self-care (01) ==
LOC: ENDO 12:31
PROVIDERS: ATTEND Surgery
DX: Z12.11 Encounter for screening for malignant neoplasm of colon (principal); K57.30 Diverticulosis of large intestine without perforation or abscess without bleeding; K64.8 Other hemorrhoids; K52.9 Noninfective gastroenteritis and colitis, unspecified

== ENCOUNTER → 2023-04-19 | Outpatient (CLI) | payer MEDICARE, BC ==
[~2023-04-19] MED LIST changes: -LACTATED RINGERS 1,000 ML IV ONE; -LACTATED RINGERS 1,000 ML IV STA; -PROPOFOL INJECTION 50 ML IV ONE
--- NOTE | 2023-04-19 17:23 | Diagnostic Imaging Report ---
Indication: Routine screening. Comparison is made with prior mammograms 04/16/2022 and 04/13/2021. 2-D and 3-D bilateral screening mammography was performed with CAD. Scattered fibroglandular densities are identified bilaterally. The parenchymal pattern is stable. No mass or malignant-appearing microcalcifications are identified. Axillae are unremarkable. IMPRESSION: BI-RADS Category 1. No mammographic features suspicious for malignancy are identified. ACR BI-RADS Category 1: Negative. Result letter will be mailed to the patient. Note: At least 10% of breast cancer is not imaged by mammography. Dictated by: Dictated on workstation # [id number]
== END ==
LOC: RAD 10:30
PROVIDERS: ATTEND Internal Medicine
DX: Z12.31 Encounter for screening mammogram for malignant neoplasm of breast (principal)
CPT/HCPCS: 77063; 77067